=== PATIENT | male | born 1970 | race Caucasian/White ===

== ENCOUNTER 2018-10-15 15:03 | Outpatient (CLI) | payer BC | END 2018-10-15 23:59 | disposition home or self-care (01) | LOC: CFH 15:03 | PROVIDERS: ATTEND Physician Assistant Surgical | DX: M79.671 Pain in right foot (principal) ==

== ENCOUNTER 2018-10-31 16:03 | Outpatient (CLI) | payer BC | END 2018-10-31 23:59 | disposition home or self-care (01) | LOC: CFH 16:03 | PROVIDERS: ATTEND Orthopaedic Surgery | DX: S92.001A Unspecified fracture of right calcaneus, initial encounter for closed fracture (principal); R60.0 Localized edema; X58.XXXA Exposure to other specified factors, initial encounter; Y93.89 Activity, other specified; Y92.89 Other specified places as the place of occurrence of the external cause; Y99.8 Other external cause status ==